=== PATIENT | male | born 1965 ===

== ENCOUNTER 2016-10-29 20:39 | Emergency (ER) | payer SELFPAY ==
[2016-10-29 22:50] VITALS: BP 142/91
--- NOTE | 2016-10-29 23:45 | ED ---
Anabel Cheema Claudia, scribed for Oswaldo Perla MD on 10/29/16 at 2327 . Throat Pain/Nasal Congestion - HPI Summary HPI Summary: 51 year old male presents to the ED with sudden onset of ear-bud stuck in his right ear. Pt states he was listening to music this evening and he pulled the earphones out and the ear bud became stuck in his ear and he is unable to retrieve it. Pt denies any associated Sx of fever, chills, NVD. He also denies any alleviating or aggravating factors. - History of Current Complaint Chief Complaint: EDEarPain Time Seen by Provider: 10/29/16 23:22 Hx Obtained From: Patient Onset/Duration: Sudden Onset, Still Present - Allergies/Home Medications Allergies/Adverse Reactions: Allergies Allergy/AdvReac Type Severity Reaction Status Date / Time Brompheniramine Allergy Shortness Verified 06/13/13 01:27 [From Dimetapp] of Breath Phenylpropanolamine Allergy Shortness Verified 06/13/13 01:27 [From Dimetapp] of Breath PMH/Surg Hx/FS Hx/Imm Hx Previously Healthy: Yes Endocrine/Hematology History: Denies: Hx Anticoagulant Therapy Cardiovascular History: Denies: Hx Myocardial Infarction Infectious Disease History: Denies: Traveled Outside the [place] in Last 30 Days - Family History Family History: Negative for GI Disorders - Social History Occupation: Unemployed Lives: Alone Alcohol Use: None Substance Use Type: Reports: None Review of Systems Constitutional: Negative Negative: Fever, Chills Eyes: Negative ENT: Other - ear-bud stuck in right ear Cardiovascular: Negative Respiratory: Negative Gastrointestinal: Negative Negative: Vomiting, Diarrhea, Nausea Genitourinary: Negative Musculoskeletal: Negative Skin: Negative Neurological: Negative Psychological: Normal All Other Systems Reviewed And Are Negative: Yes Physical Exam Triage Information Reviewed: Yes Vital Signs On Initial Exam: Initial Vitals Temp Pulse Resp BP Pulse Ox 97.4 F 80 18 115/92 98 10/29/16 20:51 10/29/16 20:51 10/29/16 20:51 10/29/16 20:51 10/29/16 20:51 Vital Signs Reviewed: Yes Appearance: Positive: Well-Appearing, Pain Distress - mild discomfort Skin: Positive: Warm Head/Face: Positive: Normal Head/Face Inspection Eyes: Positive: JUAN C ENT: Positive: Other - fb in rt eAr canal, platic, unable to remove despite several attempts Neck: Positive: Supple Respiratory/Lung Sounds: Positive: Breath Sounds Present Neurological: Positive: Alert, Oriented to Person Place, Time Diagnostics - Vital Signs Vital Signs Temp Pulse Resp BP Pulse Ox 10/29/16 22:00 97.3 F 67 18 142/91 100 10/29/16 20:51 97.4 F 80 18 115/92 98 - Laboratory Lab Statement: Any lab studies that have been ordered have been reviewed, and results considered in the medical decision making process. EENT Course/Dx - Course Assessment/Plan: MDM: AFTER MULTIPLE ATTEMPTS AT TRYING TO RETREIVE THE FOREIGN BODY FROM THE PT RIGHT EAR THE PT IS AGREEABE WITH THE PLAN TO BE D/C HOME WITH FOLLOW-UP WITH ENT IN THE MORNING. - Diagnoses Provider Diagnoses: Foreign body Discharge - Discharge Plan Condition: Stable Disposition: HOME Patient Education Materials: Ear Foreign Body (ED) Referrals: [facility] [Provider Group] - 1 Day (PLEASE FOLLOW-UP BY CALLING THEIR OFFICE FIRST THING TOMORROW MORNING. ) The documentation as recorded by the Anabel roe Claudia accurately reflects the service I personally performed and the decisions made by me, Oswaldo Perla MD.
[2016-10-30] MEDS ORDERED: Tetracaine 0.5% OPTH.SOL 15ML* BTL ONE (00:54)
== END 2016-10-30 02:40 | disposition home or self-care (01) ==
LOC: ED 20:39
DX: S00.451A Superficial foreign body of right ear, initial encounter (principal); X58.XXXA Exposure to other specified factors, initial encounter; Y93.9 Activity, unspecified; Y92.9 Unspecified place or not applicable
CPT/HCPCS: 99282; A9270-GY